=== PATIENT | male | born 1995 | race American Indian/Alaskan Native ===

== ENCOUNTER 2017-03-02 17:25 | Emergency (ER) | payer OTHER ==
[2017-03-02] MEDS ORDERED: Sodium Chloride 0.9% 1,000 ML IV STA (17:48)
--- NOTE | 2017-03-02 17:54 | ED PDOC ---
Arrival/HPI - General Chief Complaint: Flu-like Symptoms Time Seen by Provider: 03/02/17 17:36 Historian: Patient, Family (grandma) - History of Present Illness Narrative History of Present Illness (Text): 03/02/17 17:51 21 yo male with no PMhx, presents to the ED c/o tactile fever, nasal congestion , sore throat, cough, shortness of breathe with coughing, posttussive chest pain , nausea with an episode of vomiting, and generalized abdominal pain x 1 day. He is drinking fluids but not eating much. He feels weak. No photophobia, or nuchal rigidity. No trouble walking. No sick contacts or travel. No urinary outpatient changes. No urinary complaints. No penile discharge. No rash. PMD: Dr. England Past Medical History - Provider Review Nursing Documentation Reviewed: Yes - Psychiatric Hx Psychophysiologic Disorder: No Hx Substance Use: No Family/Social History - Physician Review Nursing Documentation Reviewed: Yes Family/Social History: No Known Family HX Smoking Status: Never Smoked Hx Alcohol Use: No Hx Substance Use: No Allergies/Home Meds Allergies/Adverse Reactions: Allergies No Known Allergies Allergy (Verified 03/02/17 17:33) Home Medications: Home Meds Medication Instructions Recorded Confirmed No Known Home Med 03/02/17 03/02/17 Review of Systems - Physician Review All systems were reviewed & negative as marked: Yes - Review of Systems Constitutional: Fatigue, Fevers Eyes: Normal. absent: Photophobia, Eye Pain ENT: Normal. absent: Hearing Changes Respiratory: SOB, Cough, Sputum Cardiovascular: Chest Pain. absent: GOLDSMITH, Orthopnea Gastrointestinal: Abdominal Pain, Nausea, Vomiting. absent: Constipation, Diarrhea Genitourinary Male: Normal Musculoskeletal: Normal Skin: Normal Neurological: Normal Endocrine: Normal Hemo/Lymphatic: Normal Psychiatric: Normal Physical Exam Vital Signs Reviewed: Yes Vital Signs Temp Pulse Resp BP Pulse Ox 03/02/17 18:13 99.6 F 91 H 16 131/76 100 Temperature: Afebrile Blood Pressure: Normal Pulse: Regular Respiratory Rate: Normal Appearance: Positive for: Well-Appearing, Non-Toxic, Comfortable, Uncomfortable Pain Distress: None Mental Status: Positive for: Alert and Oriented X 3 - Systems Exam Head: Present: Atraumatic, Normocephalic Pupils: Present: PERRL Extroacular Muscles: Present: EOMI Conjunctiva: Present: Normal Mouth: Present: Moist Mucous Membranes Pharnyx: Present: Normal. No: ERYTHEMA, EXUDATE Nose (Internal): Present: Normal Inspection, Moist, Engorged, Clear Mucous Neck: Present: Normal Range of Motion. No: Meningeal Signs, Lymphadenopathy Respiratory/Chest: Present: Good Air Exchange, Wheezes (expiratory cleared with coughing), Rhonchi (b/l). No: Respiratory Distress, Accessory Muscle Use, Rales , Retracting Cardiovascular: Present: Regular Rate and Rhythm, Normal S1, S2. No: Murmurs Abdomen: Present: Normal Bowel Sounds. No: Tenderness, Distention, Peritoneal Signs Back: Present: Normal Inspection Upper Extremity: Present: Normal Inspection. No: Cyanosis, Edema Lower Extremity: Present: Normal Inspection. No: Edema Neurological: Present: GCS=15, CN II-XII Intact, Speech Normal, Motor Func Grossly Intact, Normal Sensory Function, Gait Normal Skin: Present: Warm, Dry, Normal Color. No: Rashes Psychiatric: Present: Alert, Oriented x 3, Normal Insight, Normal Concentration Medical Decision Making ED Course and Treatment: 03/02/17 17:58 21 yo male with no PMhx, presents to the ED c/o tactile fever, nasal congestion , sore throat, cough, shortness of breathe with coughing, posttussive chest pain , nausea with an episode of vomiting, and generalized abdominal pain x 1 day. -- Labs -- Influenza, Rapid Strep -- IVF -- Cardiac monitoring -- EKG -- Toradol 03/02/17 17:59 EKG: NSR at 95 bpm with Nonspecific T wave abnormalities; no previous to compare 03/02/17 18:[address] Ureña to f/u labs, influenza/strep, CXR, reevaluate and disposition. - Lab Interpretations Lab Results: 03/02/17 18:15 Lab Results 03/02/17 18:15: pO2 49, VBG pH 7.37, VBG pCO2 46.0, VBG HCO3 26.6, VBG Total CO2 28.0, VBG O2 Sat (Calc) 89.8 H, VBG Base Excess 0.8, VBG Potassium 3.8, Sodium 139.0, Chloride 105.0, Glucose 100, Lactate 1.0, FiO2 21.0, Venous Blood Potassium 3.8 03/02/17 18:15: Influenza Typ A,B (EIA) Pos for influenza a H 03/02/17 18:15: WBC 6.7, RBC 4.71, Hgb 14.1, Hct 41.9 L, MCV 89.0, MCH 29.9, MCHC 33.7, RDW 11.6, Plt Count 207, MPV 10.7, Gran % 77.4 H, Lymph % (Auto) 9.4 L, [place] % (Auto) 12.6 H, Eos % (Auto) 0.3 L, Baso % (Auto) 0.3, Gran # 5.17, Lymph # 0.6 L, [place] # 0.8 H, Eos # 0.0, Baso # 0.02 I have reviewed the lab results: Yes - RAD Interpretation Radiology Orders: 03/02/17 17:46 CHEST TWO VIEWS (PA/LAT) [RAD] Stat - Medication Orders Current Medication Orders: Discontinued Medications Sodium Chloride (Sodium Chloride 0.9%) 1,000 mls @ 999 mls/hr IV .Q1H1M STA Stop: 03/02/17 18:48 Last Admin: 03/02/17 18:27 Dose: 999 mls/hr eMAR Start Stop Document 03/02/17 18:27 OCS (Rec: 03/02/17 18:27 [id number] Intravenous Solution Start Date 03/02/17 Start Time 18:27 End Date 03/02/17 End time 19:28 Total Infusion Time 61 Ketorolac Tromethamine (Toradol) 15 mg IVP STAT STA Stop: 03/02/17 17:50 Last Admin: 03/02/17 18:27 Dose: 15 mg MAR Pain Assessment Document 03/02/17 18:27 OCS (Rec: 03/02/17 18:28 [id number][facility] Pain Reassessment Is this a pain reassessment? Yes Sleep Is patient sleeping during reassessment? No Location Pain Location Body Site Generalized Description Description Constant Intensity of Pain at present 7 Pain Behavior Irritability Aggravating Factors ADL's IVP Administration Document 03/02/17 18:27 OCS (Rec: 03/02/17 18:28 [id number]) Charges for Administration # of IVP Administrations 1 Oseltamivir Phosphate (Tamiflu Cap) 75 mg PO STAT STA PRN Reason: Protocol Stop: 03/02/17 18:55 Disposition/Present on Arrival - Present on Arrival Any Indicators Present on Arrival: No History of DVT/PE: No History of Uncontrolled Diabetes: No Urinary Catheter: No History of Decub. Ulcer: No History Surgical Site Infection Following: None - Disposition Have Diagnosis and Disposition been Completed?: No Diagnosis: Viral syndrome, Influenza Disposition Time: 19:00 Patient Problems: Current Active Problems Problem Status Onset Viral syndrome Acute Influenza Acute Condition: FAIR Referrals: [facility] Molly Req, [Primary Care Provider] - Follow up with primary Forms: [email or web address] Connect (Amharic)
[2017-03-02 18:14] VITALS: BP 131/76; PULSE 91; RESP 16; TEMP 99.6; O2SAT 100
[2017-03-02 18:30] LABS: VENOUS BLOOD GAS BASE EXCESS 0.8 mmol/L (0.0-2.0); VENOUS BLOOD PH 7.37 (7.32-7.43)
[2017-03-02 18:33] LABS: BASO # 0.02 K/mm3 (0.0-2.0); BASO % 0.3 % (0.0-3.0); EOS % 0.3 % (1.5-5.0); GRAN # 5.17 (1.4-6.5); GRAN % 77.4 % (50.0-68.0); HEMATOCRIT 41.9 % (42.0-52.0); LYMPH # 0.6 (1.2-3.4); LYMPH % 9.4 % (22.0-35.0); MEAN CORPUSCULAR HEMOGLOBIN 29.9 pg (25.0-35.0); MEAN CORPUSCULAR HGB CONC 33.7 g/dl (31.0-37.0); MEAN PLATELET VOLUME 10.7 fl (7.0-11.0); MONO # 0.8 (0.1-0.6); MONO % 12.6 % (1.0-6.0); RED CELL DISTRIBUTION WIDTH 11.6 % (11.5-14.5); WHITE BLOOD COUNT 6.7 10^3/ul (4.5-11.0)
[2017-03-02 19:15] LABS: ALB/GLOB RATIO 1.5 (1.1-1.8); ALKALINE PHOSPHATASE 98 U/L (38-126); ALT/SGPT 36 U/L (7-56); AST/SGOT 25 U/L (17-59); BILIRUBIN,TOTAL 0.9 mg/dL (0.2-1.3); BLOOD UREA NITROGEN 11 mg/dL (7-21); CALCIUM 9.5 mg/dL (8.4-10.5); CARBON DIOXIDE 25 mmol/L (21-33); CHLORIDE 103 mmol/L (98-107); GFR AFRICAN-AMERICAN > 60; GLUCOSE,RANDOM 93 mg/dL (70-110); MAGNESIUM 1.8 mg/dL (1.7-2.2); POTASSIUM 3.7 mmol/L (3.6-5.0); SODIUM 139 mmol/L (132-148); TOTAL PROTEIN 7.7 g/dL (5.8-8.3)
[2017-03-02 19:28] LABS: TROPONIN I < 0.01 ng/mL
--- NOTE | 2017-03-02 20:15 | ED PDOC ---
Physical Exam Vital Signs Reviewed: Yes Vital Signs Temp Pulse Resp BP Pulse Ox 03/02/17 18:13 99.6 F 91 H 16 131/76 100 Temperature: Afebrile Blood Pressure: Normal Pulse: Regular Respiratory Rate: Normal Appearance: Positive for: Well-Appearing Pain Distress: None Mental Status: Positive for: Alert and Oriented X 3 Medical Decision Making ED Course and Treatment: 03/02/17 19:27 Awaiting Chest X-Ray and chemistry prior to disposition.Pts. HPI consistent with flu-like symptoms, with positive flu test.Interviewed at bedside with .No complaints offered. - Lab Interpretations Lab Results: 03/02/17 18:15 03/02/17 18:15 Lab Results 03/02/17 18:15: Sodium 139, Chloride 103, Potassium 3.7, Carbon Dioxide 25, Anion Gap 16, BUN 11, Creatinine 1.3, Est GFR ( Amer) > 60, Est GFR (Non- Af Amer) > 60, Random Glucose 93, Calcium 9.5, Magnesium 1.8, Total Bilirubin 0.9, AST 25, ALT 36, Alkaline Phosphatase 98, Lactate Dehydrogenase 428, Total Creatine Kinase 141, Troponin I < 0.01, Total Protein 7.7, Albumin 4.6, Globulin 3.0, Albumin/Globulin Ratio 1.5 03/02/17 18:15: pO2 49, VBG pH 7.37, VBG pCO2 46.0, VBG HCO3 26.6, VBG Total CO2 28.0, VBG O2 Sat (Calc) 89.8 H, VBG Base Excess 0.8, VBG Potassium 3.8, Sodium 139.0, Chloride 105.0, Glucose 100, Lactate 1.0, FiO2 21.0, Venous Blood Potassium 3.8 03/02/17 18:15: Influenza Typ A,B (EIA) Pos for influenza a H 03/02/17 18:15: WBC 6.7, RBC 4.71, Hgb 14.1, Hct 41.9 L, MCV 89.0, MCH 29.9, MCHC 33.7, RDW 11.6, Plt Count 207, MPV 10.7, Gran % 77.4 H, Lymph % (Auto) 9.4 L, [place] % (Auto) 12.6 H, Eos % (Auto) 0.3 L, Baso % (Auto) 0.3, Gran # 5.17, Lymph # 0.6 L, [place] # 0.8 H, Eos # 0.0, Baso # 0.02 - RAD Interpretation Narrative RAD Interpretations (Text): 03/02/17 20:52 CXR- No acute process Radiology Orders: 03/02/17 17:46 CHEST TWO VIEWS (PA/LAT) [RAD] Stat Electrician Wiring: ED Physician - Medication Orders Current Medication Orders: Discontinued Medications Sodium Chloride (Sodium Chloride 0.9%) 1,000 mls @ 999 mls/hr IV .Q1H1M STA Stop: 03/02/17 18:48 Last Admin: 03/02/17 18:27 Dose: 999 mls/hr eMAR Start Stop Document 03/02/17 18:27 OCS (Rec: 03/02/17 18:27 [id number] Intravenous Solution Start Date 03/02/17 Start Time 18:27 End Date 03/02/17 End time 19:28 Total Infusion Time 61 Ketorolac Tromethamine (Toradol) 15 mg IVP STAT STA Stop: 03/02/17 17:50 Last Admin: 03/02/17 18:27 Dose: 15 mg MAR Pain Assessment Document 03/02/17 18:27 OCS (Rec: 03/02/17 18:28 [place] [id number]) Pain Reassessment Is this a pain reassessment? Yes Sleep Is patient sleeping during reassessment? No Location Pain Location Body Site Generalized Description Description Constant Intensity of Pain at present 7 Pain Behavior Irritability Aggravating Factors ADL's IVP Administration Document 03/02/17 18:27 OCS (Rec: 03/02/17 18:28 [place] [id number]) Charges for Administration # of IVP Administrations 1 Oseltamivir Phosphate (Tamiflu Cap) 75 mg PO STAT STA PRN Reason: Protocol Stop: 03/02/17 18:55 Last Admin: 03/02/17 19:53 Dose: 75 mg Disposition/Present on Arrival - Present on Arrival Any Indicators Present on Arrival: No History of DVT/PE: No History of Uncontrolled Diabetes: No Urinary Catheter: No History of Decub. Ulcer: No History Surgical Site Infection Following: None - Disposition Have Diagnosis and Disposition been Completed?: Yes Diagnosis: Viral syndrome, Influenza, Bronchitis Disposition: HOME/ ROUTINE Disposition Time: 20:52 Patient Plan: Discharge Patient Problems: Current Active Problems Problem Status Onset Bronchitis Acute Influenza Acute Viral syndrome Acute Condition: GOOD Discharge Instructions (ExitCare): Influenza (ED), Acute Bronchitis (ED) Additional Instructions: Drink plenty of liquids/rest/Tylenol for fever as directed/meds as directed/ follow up with your doctor Prescriptions: Oseltamivir [Tamiflu] 75 mg PO BID #10 cap Azithromycin [Z-Axel] 250 mg PO DAILY #6 tab Referrals: [employer] Williamson, [Primary Care Provider] - Follow up with primary Forms: [employer] (Swedish), WORK NOTE, SCHOOL NOTE
--- NOTE | 2017-03-03 11:02 | RAD ---
HISTORY: cough r/o pna COMPARISON: No prior. TECHNIQUE: Chest PA and lateral FINDINGS: LUNGS: No active pulmonary disease. PLEURA: No significant pleural effusion identified. No pneumothorax apparent. CARDIOVASCULAR: Normal. OSSEOUS STRUCTURES: No significant abnormalities. VISUALIZED UPPER ABDOMEN: Normal. OTHER FINDINGS: None. IMPRESSION: No active disease.
--- NOTE | 2017-03-03 17:10 | CARD ---
APPROVED REPORT EKG Measurement Heart [id number] <Conclusion> Normal sinus rhythm Nonspecific T wave abnormality Abnormal ECG
== END 2017-03-02 21:12 | disposition home or self-care (01) ==
LOC: ED 17:25
DX: J11.1 Influenza due to unidentified influenza virus with other respiratory manifestations (principal); J40 Bronchitis, not specified as acute or chronic